=== PATIENT | female | born 1955 | race Caucasian/White ===

== ENCOUNTER 2023-03-02 13:05 | Outpatient (REF) | payer OTHER, SELFPAY ==
--- NOTE | ~2023-03-02 | MM_ITS ---
EXAMINATION: MM SCREENING DIGITAL BREAST TOMOSYNTHESIS, BILATERAL CLINICAL INFORMATION: Screening. Asymptomatic. Patient has a history of prior treated right breast cancer. COMPARISON: Mammography: This study is compared with prior exams dating back to 2019. TECHNIQUE: Digital breast tomosynthesis is performed in both the craniocaudal and mediolateral oblique views along with computer-aided detection (CAD). Synthesized 2D images are generated from the tomosynthesis. FINDINGS: The breasts are heterogeneously dense, which may obscure small masses (ACR BI-RADS breast composition Category c). There are no significant masses, abnormal calcifications, or other abnormalities. There are postsurgical changes in the right axilla and dystrophic calcification in the surgical bed of the central portion of the right breast. MM/MM tomosynthesis screening BI IMPRESSION: No mammographic evidence of malignancy. ASSESSMENT: BI-RADS BI-RADS 2 - Benign Findings RECOMMENDATION: Routine annual mammography screening. 1 year F/U This examination should not preclude the clinical evaluation of a suspicious palpable abnormality. This patient's information was entered into a reminder system with a target due date for their next mammogram.
== END 2023-03-02 13:06 | disposition home or self-care (01) ==
LOC: HO.MAMMO 13:05
PROVIDERS: PCP Specialist; Visit Provider Internal Medicine
DX: Z12.31 Encounter for screening mammogram for malignant neoplasm of breast (principal)
CPT/HCPCS: 77063; 77067

== ENCOUNTER → 2023-03-02 13:15 | Outpatient (BNV) | payer OTHER, SELFPAY | PROVIDERS: PCP Specialist; Visit Provider Radiology Diagnostic Radiology | DX: Z12.31 Encounter for screening mammogram for malignant neoplasm of breast (principal) | CPT/HCPCS: 77063; 77067 ==

== ENCOUNTER 2024-11-20 09:57 | Outpatient (AMB) | payer OTHER, SELFPAY ==
--- OUTSIDE RECORDS SUMMARY | 2024-11-20 10:50 | XMS_ITS | Clinical Summary ---
Author Organization [facility] Address [address] [place] [address] Care Team Providers Care Mortgage Advisor Name Role Phone Jac Rojas MD Primary Care Provider [phone] Allergies Active Allergy Reactions Criticality Noted Date Comments Meperidine 05/03/2018 Medications Medication Sig Dispensed Refills Start Date End Date Status montelukast (SINGULAIR) 10 MG tablet Take 1 tablet (10 mg total) by mouth every night at bedtime. 0 Active escitalopram (LEXAPRO) 20 MG tablet Take 1 tablet (20 mg total) by mouth daily. 0 Active Mometasone Furoate (NASONEX NA) spray or apply inside Nose. 0 Active Cholecalciferol (VITAMIN D) 2000 units tablet Take 2,000 Units by mouth daily. 0 Active Multiple Vitamins-Minerals (MULTIVITAMIN PO) Take by mouth daily. 0 Active Estradiol [address] vaginally. 0 Active rosuvastatin (CRESTOR) tablet 5 mg Take 1 tablet (5 mg total) by mouth daily. 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, estrogen receptor positive 05/03/2018 Immunizations Name Administration Dates Next Due Covid-19 (Moderna 12+) 100mcg/0.5mL dosage 02/03,07/03/2020,06/05/2020 Social History Tobacco Use Types Packs/Day Years Used Date Smoking Tobacco: Never Smokeless Tobacco: Never Sex and Gender Information Value Date Recorded Sex Assigned at Not on file Gender Identity Not on file Sexual Orientation Not on file Job Start Date Occupation Industry Not on file Not on file Not on file Last Filed Vital Signs Vital Sign Reading Time Taken Comments Blood Pressure 106/68 08/06/2023 1:58 PM EDT Pulse 69 08/06/2023 1:58 PM EDT Temperature 37.2 C (99 F) 08/06/2023 1:58 PM EDT Respiratory Rate - - Oxygen Saturation 97% 08/06/2023 1:58 PM EDT Inhaled Oxygen Concentration - - Weight 53 kg (116 lb 12.8 oz) 08/06/2023 1:58 PM EDT Height 154.9 cm (5' 1 ) 08/06/2023 1:58 PM EDT Body Mass Index 22.07 08/06/2023 1:58 PM EDT Plan of Treatment Health Maintenance Due Date Last Done Comments Hepatitis C Screening 1955 Pneumococcal Vaccine (1 of 2 - PCV) 1959 Depression Screening 1965 Preventative Health Evaluation 1971 DTap / Tdap / Td (1 - Tdap) 1972 Shingrix-Zoster Vaccine (1 o f 2) 1972 Colon Cancer Screening (Colonoscopy) 1998 Breast Cancer Screening (Mammogram) 2003 Fall Risk Assessment 2018 Osteoporosis Screening (DEXA Scan) 2018 COVID-19 Vaccine (4 - 2023-2 5 season) 2023 02/03/2021, 07/03/2020, 06/05/2020 Influenza Vaccine (#1) 2024 RSV Adult > 60+ Yrs or (1 - 1-dose 75+ series) 2028 Hepatitis B Vaccines Aged Out No long er eligible based on patient's age to complete this topic RSV Ped < 20 months Aged Out No longe r eligible based on patient's age to complete this topic Care Teams Mortgage Advisor Relationship Specialty Start Date End Date Jac Rojas MD [address] [place] [id number] PCP - General Internal Medicine 05/03/18
--- OUTSIDE RECORDS SUMMARY | 2024-11-20 10:50 | XMS_ITS | Encounter Summary ---
Author Organization [facility] Address [address] [place] [address] Care Team Providers Care Junior Administrative Assistant Name Role Phone Jac Rojas MD Primary Care Provider [phone] Encounter Details Date Type Department Care Team (Latest Contact Info) Description 05/24/2024 Lab Requisition [facility] - Main Lab [address] [facility] [place] [phone] Warren Isidro MD 299 [facility] [address] [place] [phone] Encounter for gynecological examination (general) (routine) without abnormal findings Social History Tobacco Use Types Packs/Day Years Used Date Smoking Tobacco: Never Smokeless Tobacco: Never Comments No Sex and Gender Information Value Date Recorded Sex Assigned at Not on file Legal Sex Female 8:37 PM EST Gender Identity Not on file Sexual Orientation Not on file documented as of this encounter Plan of Treatment Upcoming Encounters Date Type Department Care Team (Late st Contact Info) Description 01/16/2025 8:00 AM EDT Appointment [facility] Endoscopy [address] [place] [phone] Hilario Anderson MD [address] [id number] 09/07/2025 2:30 PM EDT Office Visit [facility] Hematology Oncology [address] [place] [phone] Samm Robins MD [address] [place] [phone] documented as of this encounter Procedures Procedure Name Priority Date/Time Associated Diagnosis Comments PAP SMEAR Routine 05/24/2024 12:00 PM EST Encounter for gynecological examination (general) (routine) without abnormal findings documented in this encounter Results * Pap smear (05/24/2024 12:00 PM EST) Interpretation Negative for intraepithelial lesion or malignancy 05/25/2024 3:35 PM EST [facility] General Categorization Negative 05/25/2024 3:35 PM [facility] Specimen Adequacy Satisfactory for evaluation, endocervical/lucas sformation zone component present 05/25/2024 3:35 PM [facility] Pap Methodology Liquid Based Pap Test 05/25/2024 3:35 PM [facility] Disclaimer The Pap test is a screening test which carries an inherent false negative rate. These test results should be correlated with the patient's clinical findings and history. This Pap test was processed using an automated screening system. Technical cytopathology services provided by [facility], at [address] [place] [address] (CLIA # [id number]/Jose Hernandez MD, Dental Practitioner.) 05/25/2024 3:35 PM [facility] Console Pap Interpretation Reported 05/25/2024 3:35 PM [facility] Brushing/Spatula Cervix uteri structure / Unknown 05/24/2024 12:00 PM EST 05/24/2024 3:15 PM EST us Warren Isidro MD LAB CYTOLOGY ORDERABLES Final Result [facility] [address] [place] [address], documented in this encounter Visit Diagnoses Diagnosis Encounter for gynecological examination (general) (routine) without abnormal findings documented in this encounter Care Teams Junior Administrative Assistant Relationship Specialty Start Date End Date Jac Rojas MD [address] [place] [address] PCP - General Internal Medicine 05/03/18 documented as of this encounter
== END 2024-11-20 10:16 | disposition home or self-care (01) ==
LOC: HO.HMGAL 09:57
PROVIDERS: PCP Specialist; Visit Provider Registered Nurse Emergency
DX: J30.89 Other allergic rhinitis (principal)
CPT/HCPCS: 95117; 95165

== ENCOUNTER 2024-12-11 10:15 | Outpatient (AMB) | payer MEDICARE, SELFPAY ==
--- OUTSIDE RECORDS SUMMARY | 2024-12-11 12:10 | XMS_ITS | Clinical Summary ---
Author Organization [facility] Address [address] [place] [address] Phone Care Team Providers Care Field Service Tech Name Role Phone Jac Rojas MD Primary Care Provider [phone] Allergies Active Allergy Reactions Criticality Noted Date Comments Meperidine 05/03/2018 Medications cholecalciferol (VITAMIN D-3) 50 mcg (2,000 unit) tablet Take 1 tablet (2,000 Units total) by mouth 1 (one) time each day. Active escitalopram (LEXAPRO) 20 mg tablet Take 0.5 tablets (10 mg total) by mouth 1 (one) time each day. Active estradioL (VAGIFEM) 10 mcg tablet vaginal tablet Insert 1 tablet (10 mcg total) into the vagina. Active montelukast (SINGULAIR) 10 mg tablet Take 1 tablet (10 mg total) by mouth at bedtime. Active mv-min/folic/vit K/lycop/coQ10 (DAILY MULTIVITAMIN ORAL) Take by mouth 1 (one) time each day. Active rosuvastatin (CRESTOR) 5 mg tablet Take 1 tablet (5 mg total) by mouth 1 (one) time each day. Active Active Problems Problem Noted Date Diagnosed Date Malignant neoplasm of overla pping sites of right breast in female, estrogen receptor positive (CMS/HCC V24, CMS/HCC V28) 12/24/2023 Encounters Date Type Department Care Team Description 10/19/2024 Telephone Gastroenterology - 299 [facility] 299 [facility] [address] [place] [address] Hilario Anderson MD from Last 3 Months Surgical History Surgery Date Site/Laterality Comments STEREOTACTIC CORE BIOPSY Right Medical History Medical History Date Comments Breast cancer (CMS/HCC V24, CMS/HCC V28) RIGHT Family History Medical History Relation Name Comments Breast cancer Father's Sister Breast cancer Mother's Sister Relation Name Status Comments Father's Sister Alive Mother's Sister Alive Social History Tobacco Use Types Packs/Day Years Used Date Smoking Tobacco: Never Smokeless Tobacco: Never Comments No Sex and Gender Information Value Date Recorded Sex Assigned at Not on file Legal Sex Female 8:37 PM EST Gender Identity Not on file Sexual Orientation Not on file Obstetrics History Para Term AB IAB SAB Ectopic Multiple Livin g Live Births 2 Last Filed Vital Signs Vital Sign Reading Time Taken Comments Blood Pressure 109/62 09/07/2024 2:28 PM EDT Pulse 73 09/07/2024 2:28 PM EDT Temperature 36.3 C (97.3 F) 09/07/2024 2:28 PM EDT Respiratory Rate - - Oxygen Saturation 98% 09/07/2024 2:28 PM EDT Inhaled Oxygen Concentration - - Weight 53.1 kg (117 lb) 03/03/2024 10:38 AM EST Height 154.9 cm (5' 1 ) 03/03/2024 10:38 AM EST Body Mass Index 22.11 03/03/2024 10:38 AM EST Plan of Treatment Upcoming Encounters Date Type Department Care Team (Late st Contact Info) Description 01/16/2025 8:00 AM EDT Appointment [facility] Endoscopy [address] [place] [address] Hilario Anderson MD [address] [place] [phone] 09/07/2025 2:30 PM EDT Office Visit [facility] Hematology Oncology [address] [place] [phone] Samm Ma MD [address] [place] [address] Health Maintenance Due Date Last Done Comments DTaP,Tdap,and Td Vaccines (1 - Tdap) 1972 Colorectal Cancer Screening: Colonoscopy 03/14/2022 Falls Risk Assessment 03/14/2022 Hepatitis C Screening 03/14/2022 Medicare Annual Wellness Visit 03/14/2022 Osteoporosis Screening (Bone Density Screening) 03/14/2022 Social Influencers of Health Screening 03/14/2022 Depression Screening 04/05/2024 COVID-19 Vaccine (8 - Moderna risk season) 2024 12/18/2023, 01/06/2023, 01/08/2022, Additional history exists Influenza Vaccine (#1) 2024 , 12/15/2022, 12/18/2021, Additional history exists Breast Cancer Screening 03/03/2026 03/03/20 24, 01/26/2022, 01/02/2021, Additional history exists Pneumococcal Vaccine: 50+ Years Completed 11/20/2018, 10/26/2018 Varicella Vaccines Aged Out 05/18/2019, 12/30/2018 No longer eligible based on patient's age to complete this topic Zoster Vaccines Completed 05/18/2019, 05/06, 12/30/2018, Additional history exists RSV Immunization Adult Patients Completed 05/03/2024 HIB Vaccines Aged Out No longer eligi ble based on patient's age to complete this topic HPV Vaccines Aged Out No longer eligi ble based on patient's age to complete this topic Hepatitis A Vaccines Aged Out No long er eligible based on patient's age to complete this topic Hepatitis B Vaccines Aged Out No long er eligible based on patient's age to complete this topic IPV Vaccines Aged Out No longer eligi ble based on patient's age to complete this topic MMR Vaccines Aged Out No longer eligi ble based on patient's age to complete this topic Meningococcal ACWY Vaccine Aged Out N o longer eligible based on patient's age to complete this topic Meningococcal B Vaccine Aged Out No l onger eligible based on patient's age to complete this topic RSV Immunization Patients Under 20 months Aged Out No longer eligible based on patient's age to complete this topic Procedures Procedure Name Priority Date/Time Associated Diagnosis Comments MG MAMMO DIGITAL SCREENING W DAMIEN BILAT Routine 03/03/2024 10:46 AM EST Encounter for screening mammogram for breast cancer from Last 3 Months or Most Recently Relevant to Health Maintenance Results * MG Mammo Digital Screening w Damien bilat (03/03/2024 10:46 AM EST) Anatomical Region Laterality Modality Breast Bilateral Mammography 03/08/2024 4:16 PM EST Impressions 03/08/2024 4:19 PM EST No evidence of breast malignancy. BI-RADS CATEGORY: 2 - BENIGN RECOMMENDATION: Screening bilateral mammogram is recommended in 1 year. Mammo Location: [facility], [address] [place] [address], [address], . -------- FINAL REPORT -------- Dictated By: Karen Ritchie Dictated Date: 03/08/2024 16:16 ET Assigned Physician: Karen Ritchie Reviewed and Electronically Signed By: Karen Ritchie Signed Date: 03/08/2024 16:19 ET Workstation ID: [id number] Transcribed By: Self Edit Transcribed Date: 03/08/2024 16:16 ET Narrative 03/08/2024 4:19 PM EST CLINICAL: 68 years old, Female, routine annual exam. History of right breast cancer. COMPARISON: 01/26/2022, 01/02/2021, 12/21/2019 and 12/06/2018 TECHNIQUE: Bilateral MLO and CC views were obtained digitally with 3-D mammogram (digital breast tomosynthesis). Computer-aided detection was utilized in evaluation of this exam (CAD). FINDINGS: There is no evidence of suspicious mass or architectural distortion. No worrisome calcifications are evident. There has been no significant change from prior exam(s). Stable right lumpectomy changes. Stable biopsy marker in the right breast. BREAST DENSITY: B - There are scattered areas of fibroglandular density. Procedure Note Karen Ritchie MD - 03/08/2024 CLINICAL: 68 years old, Female, routine annual exam. History of rightbreast cancer. COMPARISON: 01/26/2022, 01/02/2021, 12/21/2019 and 12/06/2018 TECHNIQUE: Bilateral MLO and CC views were obtained digitally with 3-Dmammogram (digital breast tomosynthesis). Computer-aided detection wasutilized in evaluation of this exam (CAD). FINDINGS: There is no evidence of suspicious mass or architectural distortion. Noworrisome calcifications are evident. There has been no significantchange from prior exam(s). Stable right lumpectomy changes. Stablebiopsy marker in the right breast. BREAST DENSITY: B - There are scattered areas of fibroglandular density. IMPRESSION: No evidence of breast malignancy. BI-RADS CATEGORY: 2 - BENIGN RECOMMENDATION: Screening bilateral mammogram is recommended in 1 year. Mammo Location: [facility], [address] [place] [address], [id number], . -------- FINAL REPORT -------- Dictated By: Karen Ritchie Dictated Date: 03/08/2024 16:16 ET Assigned Physician: Karen Ritchie Reviewed and Electronically Signed By: Karen Ritchie Signed Date: 03/08/2024 16:19 ET Workstation ID: [id number] Transcribed By: Self Edit Transcribed Date: 03/08/2024 16:16 ET us Self Referral Sppl IMG BI PROCEDURES Final Resul t from Last 3 Months or Most Recently Relevant to Health Maintenance Insurance [employer] - [place] MEDICARE ADVANTAGE Care Teams Field Service Tech Relationship Specialty Start Date End Date Jac Rojas MD [address] [place] [phone] PCP - General Internal Medicine 05/03/18
--- OUTSIDE RECORDS SUMMARY | 2024-12-11 12:10 | XMS_ITS | Clinical Summary ---
Author Organization [facility] Address [address] [place] [address] Care Team Providers Care Parts Specialist Name Role Phone Jac Rojas MD Primary Care Provider [phone] Allergies Active Allergy Reactions Criticality Noted Date [...] (DEXA Scan) 2018 COVID-19 Vaccine (4 - 2024-2 6 season) 2024 02/03/2021, 07/03/2020, 06/05/2020 Influenza Vaccine (#1) 2024 RSV Adult > 60+ Yrs or (1 - 1-dose 75+ series) 2028 Hepatitis B Vaccines Aged Out No long er eligible based on patient's age to complete this topic RSV Ped < 20 months Aged Out No longe r eligible based on patient's age to complete this topic Care Teams Parts Specialist Relationship Specialty Start Date End Date Jac Rojas MD [address] [place] [address] PCP - General Internal Medicine 05/03/18
--- OUTSIDE RECORDS SUMMARY | 2024-12-11 12:10 | XMS_ITS | Encounter Summary ---
Author Organization [facility] Address [address] [place] [address] Care Team Providers Care Hull And Deck Remover Name Role Phone Jac Rojas MD Primary Care Provider [phone] Encounter Details Date Type Department Care Team (Latest Contact Info) Description 05/24/2024 Lab Requisition [facility] Lab 299 [facility] [place] [phone] Warren Isidro MD [address] [phone] Encounter for gynecological examination (general) (routine) without [...] Info) Description 01/16/2025 8:00 AM EDT Appointment [facility] Endoscopy [address] [place] [address] Hilario Anderson MD [address] [place] [phone] 09/07/2025 2:30 PM EDT Office Visit [facility] Hematology Oncology [address] [place] [address] Samm Robins MD [address] [place] [phone] documented as of this encounter Procedures Procedure Name Priority Date/Time Associated Diagnosis Comments PAP SMEAR Routine 05/24/2024 12:00 PM EST Encounter for gynecological examination (general) (routine) without abnormal findings documented in this encounter Results * Pap smear (05/24/2024 12:00 PM EST) Interpretation Negative for intraepithelial lesion or malignancy 05/25/2024 3:35 PM [facility] General Categorization Negative 05/25/2024 3:35 PM [facility] Specimen Adequacy Satisfactory for evaluation, endocervical/lucas sformation zone component present 05/25/2024 3:35 PM [facility] Pap Methodology Liquid Based Pap Test 05/25/2024 3:35 PM [facility] Disclaimer The Pap test is a screening test which carries an inherent false negative rate. These test results should be correlated with the patient's clinical findings and history. This Pap test was processed using an automated screening system. Technical cytopathology services provided by [facility], at [address] [place] [address] (CLIA # [id number]/Jose Hernandez MD, Well Control Instructor.) 05/25/2024 3:35 PM [facility] Console Pap Interpretation Reported 05/25/2024 3:35 PM [facility] Brushing/Spatula Cervix uteri structure / Unknown 05/24/2024 12:00 PM EST 05/24/2024 3:15 PM EST us Warren Isidro MD LAB CYTOLOGY ORDERABLES Final Result [facility] [address] [place] [address], documented in this encounter Visit Diagnoses Diagnosis Encounter for gynecological examination (general) (routine) without abnormal findings documented in this encounter Care Teams Hull And Deck Remover Relationship Specialty Start Date End Date Jac Rojas MD [address] [place] [address] PCP - General Internal Medicine 05/03/18 documented as of this encounter
== END 2024-12-11 10:48 | disposition home or self-care (01) ==
LOC: HO.HMGAL 10:15
PROVIDERS: PCP Specialist; Visit Provider Registered Nurse Emergency
DX: J30.89 Other allergic rhinitis (principal)
CPT/HCPCS: 95117; 95165

== ENCOUNTER 2025-01-08 10:18 | Outpatient (AMB) | payer MEDICARE, SELFPAY ==
--- OUTSIDE RECORDS SUMMARY | 2010-08-20 04:20 | XMS_ITS | Continuity of Care Document ---
Author Organization [facility] Address [address] [place] [address] Phone Care Team Providers Care Recycle Worker Name Role Phone Leonora Omer MD Unavailable Unavailable Procedures Procedure Date OFFICE/OUTPATIENT VISIT, [facility] Advance Directives Directive Yes / No Effective Date File Name No Information Encounters Encounter Description Practice Location Reason(s) For Visit Diagnoses Date Provider Providers Copied on Encounter OFFICE/OUTPATI ENT VISIT, [facility], [address] [place] [address], [id number], tel:[phone] Medical No Information Negra Lea. [address] [place] [address], [id number]. tel:[phone] Family History Family Member Type Diagnosis Age At Onset No Information Payers Payer name Insurance type Covered green party ID Authoriza tion(s) [facility] [employer] Employees BL [id number] Social History Type Description Quantity Date Captured [...]
--- OUTSIDE RECORDS SUMMARY | 2025-01-08 12:00 | XMS_ITS | Encounter Summary ---
Author Organization [facility] Address [address] [place] [address] Care Team Providers Care Physical Metallurgist Name Role Phone Jac Rojas MD Primary Care Provider [phone] Encounter Details Date Type Department Care Team (Latest Contact Info) Description 05/24/2024 Lab Requisition [facility] - Main Lab [address] [facility] [place] [phone] Warren Isidro MD 299 [facility] [address] [place] [phone] Encounter for gynecological examination (general) (routine) without [...] Info) Description 01/16/2025 8:00 AM EDT Appointment [facility] Endoscopy [address] [place] [phone] Hilario Anderson MD [address] [phone] 09/07/2025 2:30 PM EDT Office Visit [facility] Hematology Oncology [address] [place] [phone] Samm Robins MD [address] [place] [phone] documented as of this encounter Procedures Procedure Name Priority Date/Time Associated Diagnosis Comments PAP SMEAR Routine 05/24/2024 12:00 PM EST Encounter for gynecological examination (general) (routine) without abnormal findings documented in this encounter Results * Pap smear (05/24/2024 12:00 PM EST) Interpretation Negative for intraepithelial lesion or malignancy 05/25/2024 3:35 PM EST [facility] General Categorization Negative 05/25/2024 3:35 PM [facility] Specimen Adequacy Satisfactory for evaluation, endocervical/lucas sformation zone component present 05/25/2024 3:35 PM [facility] Pap Methodology Liquid Based Pap Test 05/25/2024 3:35 PM [facility] Disclaimer The Pap test is a screening test which carries an inherent false negative rate. These test results should be correlated with the patient's clinical findings and history. This Pap test was processed using an automated screening system. Technical cytopathology services provided by [facility], at [address] [place] [address] (CLIA # [id number]/Jose Hernandez MD, Aviation Technician.) 05/25/2024 3:35 PM [facility] Console Pap Interpretation Reported 05/25/2024 3:35 PM [facility] Brushing/Spatula Cervix uteri structure / Unknown 05/24/2024 12:00 PM EST 05/24/2024 3:15 PM EST us Warren Isidro MD LAB CYTOLOGY ORDERABLES Final Result [facility] [address] [place] [address], documented in this encounter Visit Diagnoses Diagnosis Encounter for gynecological examination (general) (routine) without abnormal findings documented in this encounter Care Teams Physical Metallurgist Relationship Specialty Start Date End Date Jac Rojas MD [address] [place] [address] PCP - General Internal Medicine 05/03/18 documented as of this encounter
--- OUTSIDE RECORDS SUMMARY | 2025-01-08 12:00 | XMS_ITS | Clinical Summary ---
Author Organization [facility] Address [address] [place] [address] Care Team Providers Care Industrial Diamond Polisher Name Role Phone Jac Rojas MD Primary Care Provider [phone] Allergies Active Allergy Reactions Criticality Noted Date [...] age to complete this topic Care Teams Industrial Diamond Polisher Relationship Specialty Start Date End Date Jac Rojas MD [address] [place] [address] PCP - General Internal Medicine 05/03/18
--- OUTSIDE RECORDS SUMMARY | 2025-01-08 12:00 | XMS_ITS | Clinical Summary ---
Author Organization [facility] Address [address] [place] [address] Phone Care Team Providers Care Brokerage Clerk Name Role Phone Jac Rojas MD Primary Care Provider [phone] Allergies Active Allergy Reactions Criticality Noted Date [...] mouth 1 (one) time each day. Active polyethylene glycol (Golytely) 236-22.74-6.74 -5.86 gram solution Take 4L by mouth once for one dose. May substitue any PEG. Starting at 2PM the day before your procedure drink 1 8oz glasses at your own pace until you complete half of the gallon. Finish 2nd half of the gallon at 8PM. 4000 mL 01/03/20 25 Active bisacodyL (DULCOLAX) 5 mg EC tablet Take 2 tablets by mouth right before beginning bowel prep. See instructions provided by the office 2 tablet 01/03/20 25 Active [id number] ilr-XsBz-JDh-asb -C 140-9-5.2 gram powder in packet, sequential Take 1 each by mouth See administration instructions. 3 packet 01/03/20 25 Active Active Problems Problem Noted Date Diagnosed Date Malignant neoplasm of overla pping sites of right breast in female, estrogen receptor positive ([facility] V24, [facility] V28) 12/24/2023 Encounters Date Type Department Care Team Description 10/19/2024 Telephone Gastroenterology - [address] [place] [address] Hilario Anderson MD from Last 3 Months Surgical History Surgery Date Site/Laterality Comments STEREOTACTIC CORE BIOPSY Right Medical History Medical History Date Comments Breast cancer ([facility] V24, [facility] V28) RIGHT Family History Medical History Relation [...] Info) Description 01/16/2025 8:00 AM EDT Appointment [facility] Endoscopy [address] [place] [address] Hilario Anderson MD [address] [address] 09/07/2025 2:30 PM EDT Office Visit [facility] Hematology Oncology [address] [place] [address] Samm Ma MD [address] [place] [address] Health Maintenance Due Date Last Done Comments Colorectal Cancer Screening: Colonoscopy 1953 DTaP,Tdap,and Td Vaccines (1 - Tdap) 1972 Falls Risk Assessment 03/14/2022 Hepatitis C Screening 03/14/2022 Medicare Annual Wellness Visit 03/14/2022 Osteoporosis Screening (Bone Density Screening) 03/14/2022 Social Influencers of Health Screening 03/14/2022 Depression Screening 04/05/2024 COVID-19 Vaccine (8 - Moderna risk 2023- season) 2024 12/18/2023, 01/06/2023, 01/08/2022, Additional history [...] on patient's age to complete this topic Goals Goal Patient Goal Type Associated Problems Recent Progress Patient-Stated? Author Autogenerat ed Goal Care Plan Autogenerated Problem No Claus Craig Procedures Procedure Name Priority Date/Time Associated Diagnosis [...] year. Mammo Location: [facility], [address] [place] [address], [address], . -------- FINAL REPORT -------- Dictated By: Karen Ritchie Dictated Date: 03/08/2024 16:16 ET Assigned Physician: Karen Ritchie Reviewed and Electronically Signed By: Karen Ritchie Signed Date: 03/08/2024 16:19 ET Workstation ID: [id number] Transcribed By: Self Edit Transcribed Date: 03/08/2024 [...] year. Mammo Location: [facility], [address] [place] [address], [address], . -------- FINAL REPORT -------- Dictated By: Karen Ritchie Dictated Date: 03/08/2024 16:16 ET Assigned Physician: Karen Ritchie Reviewed and Electronically Signed By: Karen Ritchie Signed Date: 03/08/2024 16:19 ET Workstation ID: [id number] Transcribed By: Self Edit Transcribed Date: 03/08/2024 16:16 ET us Self Referral Sppl IMG BI PROCEDURES Final Resul t from Last 3 Months or Most Recently Relevant to Health Maintenance Additional Health Concerns Active Problems Noted Date Diagnosed Date Autogenerated Problem 01/01/2025 Insurance [employer] - [place]ICARE ADVANT[place] Care Teams Brokerage Clerk Relationship Specialty Start Date End Date Jac Rojas MD [address] [place] [phone] PCP - General Internal Medicine 05/03/18
== END 2025-01-08 10:53 | disposition home or self-care (01) ==
LOC: HO.HMGAL 10:18
PROVIDERS: PCP Specialist; Visit Provider Registered Nurse Emergency
DX: J30.89 Other allergic rhinitis (principal)
CPT/HCPCS: 95117; 95165

== ENCOUNTER 2025-01-31 10:24 | Outpatient (AMB) | payer MEDICARE, SELFPAY ==
--- OUTSIDE RECORDS SUMMARY | 2010-08-20 04:20 | XMS_ITS | Continuity of Care Document ---
Author Organization [facility] Address [address] [place] [address] Phone Care Team Providers Care Apprentice Technician Name Role Phone Leonora Omer MD Unavailable Unavailable Procedures Procedure Date OFFICE/OUTPATIENT VISIT, [facility] Advance Directives Directive Yes / No Effective Date File Name No Information Encounters Encounter Description Practice Location Reason(s) For Visit Diagnoses Date Provider Providers Copied on Encounter OFFICE/OUTPATI ENT VISIT, [facility], [address] [place] [address], [id number], tel:[phone] Medical No Information Negra Lea. [address] [place] [address], [id number]. tel:[phone] Family History Family Member Type Diagnosis Age At Onset No Information Payers Payer name Insurance type Covered alliance party ID Authoriza tion(s) [facility] Federal Employees BL [id number] Social History Type Description Quantity Date Captured [...]
--- OUTSIDE RECORDS SUMMARY | 2025-01-31 12:56 | XMS_ITS | Clinical Summary ---
Author Organization [facility] Address [address] [place] [address] Phone Care Team Providers Care Chief Underwriter Name Role Phone Jac Rojas MD Primary Care Provider [phone] Allergies Active Allergy Reactions Criticality Noted Date [...] the office 2 tablet 01/03/20 25 Active [id number] ogz-FqRu-KGp-asb -C 140-9-5.2 gram powder in packet, sequential Take 1 each by mouth See administration instructions. 3 packet 01/03/20 25 Active Active Problems Problem Noted Date Diagnosed Date Malignant neoplasm of overla pping sites of right breast in female, estrogen receptor positive ([facility] V24, [facility] V28) 12/24/2023 Encounters Date Type Department Care Team Description 01/15/2025 11:59 PM EDT Anesthesia Event [facility] Endoscopy [address] [place] [address] Celestino Mccormack CRNA from Last 3 Months Surgical History Surgery Date Site/Laterality Comments STEREOTACTIC CORE BIOPSY Right Medical History Medical History Date Comments Breast cancer ([facility] V24, [facility] V28) RIGHT Family History Medical History Relation [...] Care Team (Late st Contact Info) Description 03/21/2025 8:00 AM EST Appointment [facility] Endoscopy [address] [place] [address] Hilario Anderson MD [address] [place] [phone] 09/07/2025 2:30 PM EDT Office Visit [facility] Hematology Oncology [address] [place] [address] Samm Robins MD [address] [place] [address] Health Maintenance Due Date Last [...] year. Mammo Location: [facility], [address] [place] [address], [address], . -------- FINAL REPORT -------- Dictated By: Karen Ritchie Dictated Date: 03/08/2024 16:16 ET Assigned Physician: Karen Ritchie Reviewed and Electronically Signed By: Karen Ritchie Signed Date: 03/08/2024 16:19 ET Workstation ID: [id number] Transcribed By: Self Edit Transcribed Date: 03/08/2024 [...] year. Mammo Location: [facility], [address] [place] [address], [address], . -------- FINAL REPORT -------- Dictated By: Karen Ritchie Dictated Date: 03/08/2024 16:16 ET Assigned Physician: Karen Ritchie Reviewed and Electronically Signed By: Karen Ritchie Signed Date: 03/08/2024 16:19 ET Workstation ID: [id number] Transcribed By: Self Edit Transcribed Date: 03/08/2024 16:16 ET us Self Referral Sppl IMG BI PROCEDURES Final Resul t from Last 3 Months or Most Recently Relevant to Health Maintenance Additional Health Concerns Active Problems Noted Date Diagnosed Date Autogenerated Problem 01/30/2025 Insurance [place] Care Teams Chief Underwriter Relationship Specialty Start Date End Date Jac Rojas MD [address] [place] [phone] PCP - General Internal Medicine 05/03/18
--- OUTSIDE RECORDS SUMMARY | 2025-01-31 12:56 | XMS_ITS | Clinical Summary ---
Author Organization [facility] Address [address] [place] [address] Care Team Providers Care Loan Teller Name Role Phone Jac Rojas MD Primary Care Provider Allergies Active Allergy Reactions Criticality Noted Date [...] age to complete this topic Care Teams Loan Teller Relationship Specialty Start Date End Date Jac Rojas MD [address] [place] [address] PCP - General Internal Medicine 05/03/18
--- OUTSIDE RECORDS SUMMARY | 2025-01-31 12:56 | XMS_ITS | Encounter Summary ---
Author Organization [facility] Address [address] [place] [address] Care Team Providers Care Beach Attendant Name Role Phone Jac Rojas MD Primary Care Provider [phone] Encounter Details Date Type Department Care Team (Latest Contact Info) Description 05/24/2024 Lab Requisition [facility] - Main Lab 299 [facility] [place] [phone] Warren Isidro MD [address] [phone] Encounter for gynecological examination (general) (routine) without [...] Info) Description 03/21/2025 8:[address] [facility] Endoscopy [address] [place] [phone] Hilario Anderson MD [address] [place] [phone] 09/07/2025 2:30 PM EDT Office Visit [facility] Hematology Oncology [address] [place] [address] Samm Robins MD [address] [place] [phone] documented as of this encounter Procedures Procedure Name Priority Date/Time Associated Diagnosis Comments PAP SMEAR Routine 05/24/2024 12:00 PM EST Encounter for gynecological examination (general) (routine) without abnormal findings documented in this encounter Results * Pap smear (05/24/2024 12:00 PM EST) Interpretation Negative for intraepithelial lesion or malignancy 05/25/2024 3:35 PM EST [facility] General Categorization Negative 05/25/2024 3:35 PM [facility] Specimen Adequacy Satisfactory for evaluation, endocervical/lucas sformation zone component present 05/25/2024 3:35 PM [facility] Pap Methodology Liquid Based Pap Test 05/25/2024 3:35 PM [facility] Disclaimer The Pap test is a screening test which carries an inherent false negative rate. These test results should be correlated with the patient's clinical findings and history. This Pap test was processed using an automated screening system. Technical cytopathology services provided by [facility], at [address] [place] [address] (CLIA # [id number]/Jose Hernandez MD, Formstone Fitter.) 05/25/2024 3:35 PM [facility] Console Pap Interpretation Reported 05/25/2024 3:35 PM [facility] Brushing/Spatula Cervix uteri structure / Unknown 05/24/2024 12:00 PM EST 05/24/2024 3:15 PM EST us Warren Isidro MD LAB CYTOLOGY ORDERABLES Final Result [facility] [address] [place] [address], documented in this encounter Visit Diagnoses Diagnosis Encounter for gynecological examination (general) (routine) without abnormal findings documented in this encounter Care Teams Beach Attendant Relationship Specialty Start Date End Date Jac Rojas MD [address] [place] [phone] PCP - General Internal Medicine 05/03/18 documented as of this encounter
== END 2025-01-31 10:25 | disposition home or self-care (01) ==
LOC: HO.HMGAL 10:24
PROVIDERS: PCP Specialist; Visit Provider Registered Nurse Emergency
DX: J30.89 Other allergic rhinitis (principal)
CPT/HCPCS: 95117; 95165

== ENCOUNTER 2025-02-21 15:48 | Outpatient (AMB) | payer MEDICARE, SELFPAY ==
--- OUTSIDE RECORDS SUMMARY | 2010-08-20 03:20 | XMS_ITS | Continuity of Care Document ---
Author Organization [facility] Address [address] [place] [address] Phone Care Team Providers Care [employer] Physical Education Teacher Name Role Phone Leonora Omer MD Unavailable Unavailable Procedures Procedure Date OFFICE/OUTPATIENT VISIT, [facility] Advance Directives Directive Yes / No Effective Date File Name No Information Encounters Encounter Description Practice Location Reason(s) For Visit Diagnoses Date Provider Providers Copied on Encounter OFFICE/OUTPATI ENT VISIT, [facility], [address] [place] [address], [id number], tel:[phone] Medical No Information Negra Lea. [address] [place] [address], [id number]. tel:[phone] Family History Family Member Type Diagnosis Age At Onset No Information Payers Payer name Insurance type Covered constitution party ID Authoriza tion(s) [facility] [employer] Employees BL [id number] Social History Type Description Quantity Date Captured Comments Sex Female Smoking Status No Information Chief Complaint And Reason For Visit No Information Reason For Referral Reason For Referral No Information History Of Present Illness Encounter Date Complaint History Of Prese nt Illness No Information Functional Status Date Functional Assessmen t No Information Instructions Date Instruction Additional Infor mation No Information Assessments Type Assessment Date No Information Patient Care Teams Name Effective Dates (start - stop) Status Members No Information
--- OUTSIDE RECORDS SUMMARY | 2010-08-20 03:20 | XMS_ITS | Continuity of Care Document ---
Author Organization [facility] Address [address] [place] [address] Phone Care Team Providers Care Mailroom Manager Name Role Phone Leonora Omer MD Unavailable Unavailable Procedures Procedure Date OFFICE/OUTPATIENT VISIT, [facility] Advance Directives Directive Yes / No Effective Date File Name No Information Encounters Encounter Description Practice Location Reason(s) For Visit Diagnoses Date Provider Providers Copied on Encounter OFFICE/OUTPATI ENT VISIT, [facility], [address] [place] [address], [id number], tel:[phone] Medical No Information Negra Lea. [address] [place] [address], [id number]. tel:[phone] Family History Family Member Type Diagnosis Age At Onset No Information Payers Payer name Insurance type Covered constitution party ID Authoriza tion(s) [facility] Federal Employees BL [id number] Social History Type Description Quantity Date Captured [...]
--- OUTSIDE RECORDS SUMMARY | 2010-08-20 03:20 | XMS_ITS | Continuity of Care Document ---
Author Organization [facility] Address [address] [place] [address] Phone Care Team Providers Care Industrial Commercial Groundskeeper Name Role Phone Leonora Omer MD Unavailable Unavailable Procedures Procedure Date OFFICE/OUTPATIENT VISIT, [facility] Advance Directives Directive Yes / No Effective Date File Name No Information Encounters Encounter Description Practice Location Reason(s) For Visit Diagnoses Date Provider Providers Copied on Encounter OFFICE/OUTPATI ENT VISIT, [facility], [address] [place] [address], [id number], tel:[phone] Medical No Information Negra Lea. [address] [place] [address], [id number]. tel:[phone] Family History Family Member Type Diagnosis Age At Onset No Information Payers Payer name Insurance type Covered democrat ID Authoriza tion(s) [facility] [employer] Employees BL [id number] Social History Type Description Quantity Date Captured [...]
--- OUTSIDE RECORDS SUMMARY | 2010-08-20 03:20 | XMS_ITS | Continuity of Care Document ---
Author Organization [facility] Address [address] [place] [address] Phone Care Team Providers Care Line Service Technician Name Role Phone Leonora Omer MD Unavailable Unavailable Procedures Procedure Date OFFICE/OUTPATIENT VISIT, [facility] Advance Directives Directive Yes / No Effective Date File Name No Information Encounters Encounter Description Practice Location Reason(s) For Visit Diagnoses Date Provider Providers Copied on Encounter OFFICE/OUTPATI ENT VISIT, [facility], [address] [place] [address], [id number], tel:[phone] Medical No Information Negra Lea. [address] [place] [address], [id number]. tel:[phone] Family History Family Member Type Diagnosis Age At Onset No Information Payers Payer name Insurance type Covered libertarian ID Authoriza tion(s) [facility] Federal Employees BL [id number] Social History Type Description Quantity Date Captured [...]
--- OUTSIDE RECORDS SUMMARY | 2010-08-20 03:20 | XMS_ITS | Continuity of Care Document ---
Author Organization [facility] Address [address] [place] [address] Phone Care Team Providers Care Regional Economist Name Role Phone Leonora Omer MD Unavailable Unavailable Procedures Procedure Date OFFICE/OUTPATIENT VISIT, [facility] Advance Directives Directive Yes / No Effective Date File Name No Information Encounters Encounter Description Practice Location Reason(s) For Visit Diagnoses Date Provider Providers Copied on Encounter OFFICE/OUTPATI ENT VISIT, [facility], [address] [place] [address], [id number], tel:[phone] Medical No Information Negra Lea. [address] [place] [address], [id number]. tel:[phone] Family History Family Member Type Diagnosis Age At Onset No Information Payers Payer name Insurance type Covered democrat ID Authoriza tion(s) [facility] [employer] Employees BL [id number] Social History Type Description Quantity Date Captured [...]
--- OUTSIDE RECORDS SUMMARY | 2025-02-22 04:25 | XMS_ITS | Clinical Summary ---
Author Organization [facility] Address [address] [place] [address] Care Team Providers Care Physician Relations Representative Name Role Phone Jac Rojas MD Primary Care Provider [phone] Allergies Active Allergy Reactions Criticality Noted Date [...] age to complete this topic Care Teams Physician Relations Representative Relationship Specialty Start Date End Date Jac Rojas MD [address] [place] [address] PCP - General Internal Medicine 05/03/18
== END 2025-02-21 15:48 | disposition home or self-care (01) ==
LOC: HO.HMGAL 15:48
PROVIDERS: PCP Specialist; Visit Provider Registered Nurse Emergency
DX: J30.89 Other allergic rhinitis (principal)
CPT/HCPCS: 95117; 95165

== ENCOUNTER 2025-03-07 11:01 | Outpatient (AMB) | payer MEDICARE, SELFPAY ==
--- OUTSIDE RECORDS SUMMARY | 2025-03-05 10:22 | XMS_ITS | Encounter Summary ---
Author Organization [facility] Address [address] [place] [address] Care Team Providers Care Coach Name Role Phone Jac Rojas MD Primary Care Provider [phone] Reason for Referral * Imaging (Routine) - Authorized Specialty Diagnoses / Procedures Referred By Contac t Referred To Contact Radiology Diagnoses Encounter for screening mammogram for breast cancer Procedures MG Mammo Digital Screening w Damien bilat Sppl, Self Referral [facility] Referral ID Status Reason Start Date Expiration Date V isits Requested Visits Authorized [id number] Authorized 02/06/2025 02/06/2026 1 1 * Imaging (Routine) - Authorized Specialty Diagnoses / Procedures Referred By Contac t Referred To Contact Radiology Diagnoses Encounter for screening mammogram for breast cancer Procedures MG Mammo Digital Screening w Damien bilat Sppl, Self Referral [facility] Referral ID Status Reason Start Date Expiration Date V isits Requested Visits Authorized [id number] Authorized 02/06/2025 02/06/2026 1 1 Reason for Visit * Imaging (Routine) - Authorized Specialty Diagnoses / Procedures Referred By Contac t Referred To Contact Radiology Diagnoses Encounter for screening mammogram for breast cancer Procedures MG Mammo Digital Screening w Damien bilat Sppl, Self Referral [facility] Referral ID Status Reason Start Date Expiration Date V isits Requested Visits Authorized [id number] Authorized 02/06/2025 02/06/2026 1 1 Encounter Details Date Type Department Care Team (Latest Contact Info) Description 03/05/2025 10:22 AM EST - 03/05/2025 11:59 PM EST Hospital [facility] [address] [address] Encounter for screening mammogram for breast cancer Discharge Disposition: Home or Self Care Social History Tobacco Use Types Packs/Day Years Used Date Smoking Tobacco: Never Smokeless Tobacco: Never Comments No Sex and Gender Information Value Date Recorded Sex Assigned at Not on file Legal Sex Female 8:37 PM EST Gender Identity Not on file Sexual Orientation Not on file documented as of this encounter Medications at Time of Discharge bisacodyL (DULCOLAX) 5 mg EC tablet Take 2 tablets by mouth right before beginning bowel prep. See instructions provided by the office 2 tablet 5 cholecalciferol (VITAMIN D-3) 50 mcg (2,000 unit) tablet Take 1 tablet (2,000 Units total) by mouth 1 (one) time each day. escitalopram (LEXAPRO) 20 mg tablet Take 0.5 tablets (10 mg total) by mouth 1 (one) time each day. estradioL (VAGIFEM) 10 mcg tablet vaginal tablet Insert 1 tablet (10 mcg total) into the vagina. montelukast (SINGULAIR) 10 mg tablet Take 1 tablet (10 mg total) by mouth at bedtime. mv-min/folic/vit K/lycop/coQ10 (DAILY MULTIVITAMIN ORAL) Take by mouth 1 (one) time each day. [id number] dbt-YwOv-BXp-asb- C 140-9-5.2 gram powder in packet, sequential Take 1 each by mouth See administration instructions. 3 packet 5 polyethylene glycol (Golytely) 236-22.74-6.74 -5.86 gram solution Take 4L by mouth once for one dose. May substitue any PEG. Starting at 2PM the day before your procedure drink 1 8oz glasses at your own pace until you complete half of the gallon. Finish 2nd half of the gallon at 8PM. 4000 mL 5 rosuvastatin (CRESTOR) 5 mg tablet Take 1 tablet (5 mg total) by mouth 1 (one) time each day. documented as of this encounter Discharge Disposition Disposition Code Departure Means Destination Home or Self Care documented in this encounter Plan of Treatment Upcoming Encounters Date Type Department Care Team (Late st Contact Info) Description 03/21/2025 8:00 AM EST Appointment [facility] Endoscopy [address] [place] [phone] Hilario [place] MD [address] [address] 09/07/2025 2:30 PM EDT Office Visit [facility] Hematology Oncology [address] [place] [phone] Samm Robins MD [address] [place] [address] documented as of this encounter Procedures Procedure Name Priority Date/Time Associated Diagnosis Comments MG MAMMO DIGITAL SCREENING W DAMIEN BILAT Routine 03/05/2025 11:06 AM EST Encounter for screening mammogram for breast cancer documented in this encounter Results * MG Mammo Digital Screening w Damien bilat (03/05/2025 11:06 AM EST) Anatomical Region Laterality Modality Breast Bilateral Mammography 03/05/2025 11:2 1 AM EST Impressions 03/05/2025 1:26 PM EST Benign. BI-RADS CATEGORY: 2 - BENIGN RECOMMENDATION: Screening bilateral mammogram is recommended in 1 year. Mammo Location: [facility], [address] [place] [address], [address], . -------- FINAL REPORT -------- Dictated By: Blane Spencer Dictated Date: 03/05/2025 11:21 ET Assigned Physician: Blane Spencer Reviewed and Electronically Signed By: Blane Spencer Signed Date: 03/05/2025 13:26 ET Workstation ID: [id number] Transcribed By: Self Edit Transcribed Date: 03/05/2025 11:29 ET Narrative 03/05/2025 1:26 PM EST CLINICAL: 69 years old, Female, routine annual exam. COMPARISON: 03/03/2024 and 01/26/2022. TECHNIQUE: Bilateral MLO and CC views were obtained digitally with 3-D mammogram (digital breast tomosynthesis). Computer-aided detection was utilized in evaluation of this exam (CAD). FINDINGS: Scattered benign calcifications. Stable postlumpectomy and axillary lymph node dissection changes on the right. No suspicious mass or architectural distortion. No suspicious calcification. There has been no significant change from prior exam(s). BREAST DENSITY: B - There are scattered areas of fibroglandular density. Procedure Note Blane Spencer MD - 03/05/2025 CLINICAL: 69 years old, Female, routine annual exam. COMPARISON: 03/03/2024 and 01/26/2022. TECHNIQUE: Bilateral MLO and CC views were obtained digitally with 3-Dmammogram (digital breast tomosynthesis). Computer-aided detection wasutilized in evaluation of this exam (CAD). FINDINGS: Scattered benign calcifications. Stable postlumpectomy andaxillary lymph node dissection changes on the right. No suspicious mass or architectural distortion. No suspiciouscalcification. There has been no significant change from prior exam(s). BREAST DENSITY: B - There are scattered areas of fibroglandular density. IMPRESSION: Benign. BI-RADS CATEGORY: 2 - BENIGN RECOMMENDATION: Screening bilateral mammogram is recommended in 1 year. Mammo Location: [facility], [address] [place] [address], [facility], . -------- FINAL REPORT -------- Dictated By: Blane Spencer Dictated Date: 03/05/2025 11:21 ET Assigned Physician: Blane Spencer Reviewed and Electronically Signed By: Blane Spencer Signed Date: 03/05/2025 13:26 ET Workstation ID: [id number] Transcribed By: Self Edit Transcribed Date: 03/05/2025 11:29 ET us Self Referral Sppl IMG BI PROCEDURES Final Resul t documented in this encounter Visit Diagnoses Diagnosis Encounter for screening mammogram for breast cancer documented in this encounter Care Teams Coach Relationship Specialty Start Date End Date Jac Rojas MD [address] [place] [address] PCP - General Internal Medicine 05/03/18 documented as of this encounter
--- OUTSIDE RECORDS SUMMARY | 2025-03-07 13:00 | XMS_ITS | Clinical Summary ---
Author Organization [facility] Prior to 09/02/24 Address [address] [place] [address] Care Team Providers Care Cloth Doubling Machine Operator Name Role Phone Jac Rojas MD Primary Care Provider [phone] Allergies Active Allergy Reactions Criticality Noted Date [...] Osteoporosis Screening (DEXA Scan) 2018 COVID-19 Vaccine (2024-2 6 season) 2024 02/03/2021, 07/03/2020, 06/05/2020 Influenza Vaccine (#1) 2024 RSV Adult > 60+ Yrs or (1 - 1-dose 75+ series) 2028 Hepatitis B Vaccines Aged Out No long er eligible based on patient's age to complete this topic RSV Ped < 20 months Aged Out No longe r eligible based on patient's age to complete this topic Care Teams Cloth Doubling Machine Operator Relationship Specialty Start Date End Date Jac Rojas MD [address] [place] [address] PCP - General Internal Medicine 05/03/18
--- OUTSIDE RECORDS SUMMARY | 2025-03-07 13:00 | XMS_ITS | Clinical Summary ---
Author Organization [facility] Address [address] [place] [address] Phone Care Team Providers Care Claim Representative Name Role Phone Jac Rojas MD Primary Care Provider [phone] Allergies Active Allergy Reactions Criticality Noted Date [...] the office 2 tablet 01/03/20 25 Active [id number] mrh-AaJf-YEa-asb -C 140-9-5.2 gram powder in packet, sequential Take 1 each by mouth See administration instructions. 3 packet 01/03/20 25 Active Active Problems Problem Noted Date Diagnosed Date Malignant neoplasm of overla pping sites of right breast in female, estrogen receptor positive ([facility] V24, [facility] V28) 12/24/2023 Encounters Date Type Department Care Team Description 03/05/2025 10:22 AM EST - 03/05/2025 11:59 PM EST Hospital [facility]counter [facility] at [address] [phone] Encounter for screening mammogram for breast cancer Discharge Disposition: Home or Self Care 01/15/2025 11:59 PM EDT Anesthesia Event [facility] Endoscopy [address] [place] [phone] Celestino Mccormack CRNA from Last 3 Months Surgical History Surgery Date Site/Laterality Comments STEREOTACTIC CORE BIOPSY Right Medical History Medical History Date Comments Breast cancer ([facility] [place], [facility] V28) RIGHT Family History Medical History Relation [...] Info) Description 03/21/2025 8:00 AM EST Appointment [facility] Endoscopy [address] [place] [address] Hilario [place] MD [address] [phone] 09/07/2025 2:30 PM EDT Office Visit [facility] Hematology Oncology [address] [place] [address] Samm Robins MD [address] [place] [address] Health Maintenance Due Date Last Done Comments Colorectal Cancer Screening: Colonoscopy 1955 [place] Risk Assessment 03/14/2022 Hepatitis C Screening 03/14/2022 Medicare Annual Wellness Visit 03/14/2022 Osteoporosis Screening (Bone Density Screening) 03/14/2022 Social Influencers of Health Screening 03/14/2022 Depression Screening 04/05/2024 COVID-19 Vaccine (9 - Moderna risk season) 2025 12/25/2024, 12/18/2023, 01/06/2023, Additional history exists Breast Cancer Screening 03/05/2027 03/05/20 25, 03/03/2024, 01/26/2022, Additional history exists DTaP,Tdap,and Td Vaccines (2 - Td or Tdap) 10/16/2034 10/16/2024 Pneumococcal Vaccine: 50+ Years Completed 11/20/2018, 10/26/2018 Varicella Vaccines Aged Out 05/18/2019, 12/30/2018 No longer eligible based on patient's age to complete this topic Zoster Vaccines Completed 05/18/2019, 05/06, 12/30/2018, Additional history exists RSV Immunization Adult Patients Completed 05/03/2024 Influenza Vaccine Completed 12/25/2024, , 12/15/2022, Additional history exists HIB Vaccines Aged Out No longer eligi [...] for breast cancer from Last 3 Months Results * MG Mammo Digital Screening w Damien bilat (03/05/2025 11:06 AM EST) Anatomical Region Laterality Modality Breast Bilateral Mammography 03/05/2025 11:2 1 AM EST Impressions 03/05/2025 1:26 PM EST Benign. BI-RADS CATEGORY: 2 - BENIGN RECOMMENDATION: Screening bilateral mammogram is recommended in 1 year. Mammo Location: [facility], [address] [place] [address], [address], . -------- FINAL REPORT -------- Dictated By: Blane Spencer Dictated Date: 03/05/2025 11:21 ET Assigned Physician: Blane Spencer Reviewed and Electronically Signed By: Blane Spencer Signed Date: 03/05/2025 13:26 ET Workstation ID: [id number] Transcribed By: Self Edit Transcribed Date: 03/05/2025 [...] year. Mammo Location: [facility], [address] [place] [address], [facility], . -------- FINAL REPORT -------- Dictated By: Blane Spencer Dictated Date: 03/05/2025 11:21 ET Assigned Physician: Blane Spencer Reviewed and Electronically Signed By: Blane Spencer Signed Date: 03/05/2025 13:26 ET Workstation ID: [id number] Transcribed By: Self Edit Transcribed Date: 03/05/2025 11:29 ET us Self Referral Sppl IMG BI PROCEDURES Final Resul t from Last 3 Months Insurance [employer] - [place] MEDICARE ADVANTAGE Care Teams Claim Representative Relationship Specialty Start Date End Date Jac Rojas MD [address] [place] [address] PCP - General Internal Medicine 05/03/18
--- OUTSIDE RECORDS SUMMARY | 2025-03-07 13:00 | XMS_ITS | Encounter Summary ---
Author Organization [facility] Address [address] [place] [address] Care Team Providers Care Reverse Unit Operator Name Role Phone Jac Rojas MD Primary Care Provider [phone] Encounter Details Date Type Department Care Team (Latest Contact Info) Description 05/24/2024 Lab Requisition [facility] - Main Lab 299 [facility] [place] [phone] Warren Isidro MD [address] [phone] Encounter for gynecological examination (general) (routine) without [...] Info) Description 03/21/2025 8:00 AM EST Appointment [facility] Endoscopy [address] [place] [phone] Hilario [place] MD [address] [phone] 09/07/2025 2:30 PM EDT Office Visit [facility] Hematology Oncology [address] [place] [phone] Samm Robins MD [address] [place] [address] documented as of this encounter Procedures Procedure Name Priority Date/Time Associated Diagnosis Comments PAP SMEAR Routine 05/24/2024 12:00 PM EST Encounter for gynecological examination (general) (routine) without abnormal findings documented in this encounter Results * Pap smear (05/24/2024 12:00 PM EST) Interpretation Negative for intraepithelial lesion or malignancy 05/25/2024 3:35 PM EST [facility] at 1535 EST General Categorization Negative 05/25/2024 3:35 PM [facility] Specimen Adequacy Satisfactory for evaluation, endocervical/lucas sformation zone component present 05/25/2024 3:35 PM EST [facility] Pap Methodology Liquid Based Pap Test 05/25/2024 3:35 PM EST [facility] Disclaimer The Pap test is a screening test which carries an inherent false negative rate. These test results should be correlated with the patient's clinical findings and history. This Pap test was processed using an automated screening system. Technical cytopathology services provided by [facility], at [address] [place] [address] (CLIA # [id number]/Jose Hernandez MD, Welding Machine Operator/Tender.) 05/25/2024 3:35 PM [facility] Console Pap Interpretation Reported 05/25/2024 3:35 PM [facility] Brushing/Spatula Cervix uteri structure / Unknown 05/24/2024 12:00 PM EST 05/24/2024 3:15 PM EST us Warren Isidro MD LAB CYTOLOGY ORDERABLES Final Result [facility] [address] [place] [address], documented in this encounter Visit Diagnoses Diagnosis Encounter for gynecological examination (general) (routine) without abnormal findings documented in this encounter Care Teams Reverse Unit Operator Relationship Specialty Start Date End Date Jac Rojas MD [address] [place] [address] PCP - General Internal Medicine 05/03/18 documented as of this encounter
== END 2025-03-07 11:01 | disposition home or self-care (01) ==
LOC: HO.HMGAL 11:01
PROVIDERS: PCP Specialist; Visit Provider Registered Nurse Emergency
DX: J30.89 Other allergic rhinitis (principal)
CPT/HCPCS: 95117; 95165

== ENCOUNTER 2025-03-26 11:04 | Outpatient (AMB) | payer MEDICARE, SELFPAY ==
--- OUTSIDE RECORDS SUMMARY | 2025-03-21 07:18 | XMS_ITS | Encounter Summary ---
[facility] Address [address] [place] [address] Care Team Providers Care Director Religious Education Name Role Phone Jac Rojas MD Primary Care Provider Reason for Referral * Hospital - Outpatient (Routine) - Closed Specialty Diagnoses / Procedures Referred By Awilda t Referred To Contact Gastroenterology Diagnoses Colon cancer screening Procedures COLONOSCOPY Anesthesia - MAC; [facility] ENDOSCOPY Hilario Anderson MD [address] [address] Phone: tel: fax: [facility] Endoscopy [address] [place] [address] Phone: tel: Referral ID Status Reason Start Date Expiration Date Visits Re quested Visits Authorized [id number] Closed 01/15/2025 01/15/2026 1 1 Reason for Visit * Auth/Cert (Routine) Specialty Diagnoses / Procedures Referred By Contac t Referred To Contact Diagnoses Encounter for screening for malignant neoplasm of colon Procedures COLONOSCOPY [facility] [place] [address] [facility] Endoscopy [address] [place] [address] Phone: tel: Referral ID Status Reason Start Date Expiration Date Visits Re quested Visits Authorized [id number] 1 1 Encounter Details Date Type Department Care Team (Latest Contact Info) Description 03/21/2025 7:18 AM EST - 03/21/2025 11:59 PM EST Hospital Encounter [facility] Endoscopy [address] [place] [phone] Hilario Anderson MD [address] [address] Nkechi Robins CRNA [address] [place] [address] Colon cancer screening Discharge Disposition: Home or Self Care Social History Tobacco Use Types Packs/Day Years Used Date Smoking Tobacco: Never Smokeless Tobacco: Never Interpersonal Safety Answer Date Record ed Physical Abuse Unrecognized value 03/21/2025 Verbal Abuse Unrecognized value 03/21/2025 Comments No Sex and Gender Information Value Date Recorded Sex Assigned at Not on file Legal Sex Female 8:37 PM EST Gender Identity Not on file Sexual Orientation Not on file documented as of this encounter Last Filed Vital Signs Vital Sign Reading Time Taken Comments Blood Pressure 108/55 03/21/2025 8:35 AM EST Pulse 62 03/21/2025 8:35 AM EST Temperature 36.2 C (97.1 F) 03/21/2025 8:15 AM EST Respiratory Rate 18 03/21/2025 8:35 AM EST Oxygen Saturation 97% 03/21/2025 8:35 AM EST Inhaled Oxygen Concentration - - Weight 52.2 kg (115 lb) 03/21/2025 7:41 AM EST Height 154.9 cm (5' 1 ) 03/21/2025 7:41 AM EST Body Mass Index 21.73 03/21/2025 7:41 AM EST documented in this encounter Discharge Instructions * Attachments The following attachments cannot be sent through Care Everywhere. * Diverticulosis (Macedonian) * Hemorrhoids (Macedonian) * Colon Polyps (Macedonian) documented in this encounter Medications at Time of Discharge bisacodyL (DULCOLAX) 5 mg EC tablet Take 2 tablets by mouth right before beginning bowel prep. See instructions provided by the office 2 tablet 5 bisacodyL (DULCOLAX) 5 mg EC tablet Take 2 tablets by mouth right before beginning bowel prep. See instructions provided by the office 2 tablet 5 cetirizine (ZyrTEC) 10 mg chewable tablet Chew 1 (one) time each day. cholecalciferol (VITAMIN D-3) 50 mcg (2,000 unit) tablet Take 1 tablet (2,000 Units total) by mouth 1 (one) time each day. escitalopram (LEXAPRO) 10 mg tablet Take 1 tablet (10 mg total) by mouth 1 (one) time each day. for 90 days 5 estradioL (VAGIFEM) 10 mcg tablet vaginal tablet Insert 1 tablet (10 mcg total) into the vagina. montelukast (SINGULAIR) 10 mg tablet Take 1 tablet (10 mg total) by mouth at bedtime. mv-min/folic/vit K/lycop/coQ10 (DAILY MULTIVITAMIN ORAL) Take by mouth 1 (one) time each day. [id number] osx-[id number]-NBu-asb- C 140-9-5.2 gram powder in packet, sequential [...] the gallon at 8PM. 4000 mL 5 polyethylene glycol (Golytely) 236-22.74-6.74 -5.86 gram [...] by mouth 1 (one) time each day. triamcinolone acetonide (NASACORT ALLERGY NASL) Administer into affected nostril(s). documented as of this encounter Discharge Disposition Disposition Code Departure Means Destination Home or Self Care documented in this encounter Progress Notes * Juliann Bustamante RN - 03/21/2025 8:25 AM EST Problem: Cognitive:Periop Procedure - Minor Goal: Knowledge of disease or condition will improve Outcome: Adequate for Discharge Problem: Sensory:Periop Procedure - Minor Goal: Demonstrates/reports adequate pain control Outcome: Adequate for Discharge Dr in to discuss procedure results, all questions answered. Tolerated po fluids, ready for discharge. * Hellen Joy RN - 03/21/2025 7:33 AM EST Problem: Cognitive:Periop Procedure - Minor Goal: Knowledge of disease or condition will improve Outcome: Progressing Problem: Sensory:Periop Procedure - Minor Goal: Demonstrates/reports adequate pain control Outcome: Progressing Verbalizes understanding of discharge teaching. documented in this encounter H&P Notes * Hilario Anderson MD - 03/21/2025 8:00 AM EST Pre-Op Diagnosis: Screening for colon cancer Proposed Procedure: Colonoscopy Performing Surgeon/MD/Endoscopist: Hilario Anderson MD Medical/History: Medical History[1]Surgical History[2] Medications/Allergies: Prior to Admission medications Medication Sig Start Date End Date Taking? Authorizing Provider cetirizine (ZyrTEC) 10 mg chewable tablet Chew 1 (one) time each day. Yes Historical Provider, cholecalciferol (VITAMIN D-3) 50 mcg (2,000 unit) tablet Take 1 tablet (2,000 Units total) by mouth1 (one) time each day. Yes Historical Provider, escitalopram (LEXAPRO) 10 mg tablet Take 1 tablet (10 mg total) by mouth 1 (one) time each day. for90 days 12/22/24 Yes Historical Provider, estradioL (VAGIFEM) 10 mcg tablet vaginal tablet Insert 1 tablet (10 mcg total) into the vagina. Yes Historical Provider, montelukast (SINGULAIR) 10 mg tablet Take 1 tablet (10 mg total) by mouth at bedtime. Yes Historical Provider, mv-min/folic/vit K/lycop/coQ10 (DAILY MULTIVITAMIN ORAL) Take by mouth 1 (one) time each day. Yes Historical Provider, rosuvastatin (CRESTOR) 5 mg tablet Take 1 tablet (5 mg total) by mouth 1 (one) time each day. Yes Historical Provider, triamcinolone acetonide (NASACORT ALLERGY NASL) Administer into affected nostril(s). Yes HistoricalProviderMD bisacodyL (DULCOLAX) 5 mg EC tablet Take 2 tablets by mouth right before beginning bowel prep. See instructions provided by the office 01/02/25 Hilario Anderson MD bisacodyL (DULCOLAX) 5 mg EC tablet Take 2 tablets by mouth right before beginning bowel prep. See instructions provided by the office 03/07/25 Hilario Anderson MD [id number] aek-[id number]-BIn-asb-C 140-9-5.2 gram powder in packet, sequential Take 1 each by mouth Seeadministration instructions. 01/02/25 Hilario Anderson MD polyethylene glycol (Golytely) 236-22.74-6.74 -5.86 gram solution Take 4L by mouth once for one dose. May substitue any PEG. Starting at 2PM the day before your procedure drink 1 8oz glasses at your own pace until you complete half of the gallon. Finish 2nd half of the gallon at 8PM. 01/02/25 Hilario Anderson MD polyethylene glycol (Golytely) 236-22.74-6.74 -5.86 gram solution Take 4L by mouth once for one dose. May substitue any PEG. Starting at 2PM the day before your procedure drink 1 8oz glasses at your own pace until you complete half of the gallon. Finish 2nd half of the gallon at 8PM. 03/07/25 Hilario Anderson MD Patient Age:69 y.o. Vitals: Vitals: 03/21/25 0741 BP: 115/65 Pulse: 67 Resp: 15 Temp: 36.3 ??C (97.4 ??F) SpO2: 98% Physical Exam: Mental Status: Clear HEENT: WNL Heart: WNL Lungs: WNL Abdomen: WNL Extremities: WNL Neuro: WNL Diagnosis/Plan: Screening for colon cancer Plan for colonoscopy Board Certified Gastroenterology [facility] W [phone] [address] [facility] [place] [address] [email or web address] Hilario Anderson MD 7:46 AM EST [1] Past Medical History: Diagnosis Date Anxiety Asthma Breast cancer (CMS/HCC V24, CMS/HCC V28) RIGHT Hyperlipidemia [2] Past Surgical History: Procedure Laterality Date BREAST LUMPECTOMY Right COLONOSCOPY STEREOTACTIC CORE BIOPSY Right TUBAL LIGATION documented in this encounter Plan of Treatment Upcoming Encounters Date Type Department Care Team (Late st Contact Info) Description 09/07/2025 2:30 PM EDT Office Visit [facility] Hematology Oncology [address] [place] [address] Samm Robins MD [address] [place] [address] documented as of this encounter Procedures Procedure Name Priority Date/Time Associated Diagnosis Comments COLONOSCOPY Routine 03/21/2025 8:14 AM EST Colon cancer screening TISSUE EXAM Routine 03/21/2025 8:09 AM EST Colon cancer screening documented in this encounter Results * COLONOSCOPY Anesthesia - MAC; [facility] ENDOSCOPY (03/21/2025 8:14 AM EST) Anatomical Region Laterality Modality Endoscopy 03/21/2025 7:50 AM EST Impressions 03/21/2025 8:15 AM EST - One 3 mm polyp in the proximal ascending colon, removed with a cold snare. Resected and retrieved. - Diverticulosis in the entire examined colon. - Non-bleeding internal hemorrhoids. - The examination was otherwise normal on direct and retroflexion views. Recommendation: - Discharge patient to home. - High fiber diet. - Continue present medications. - Await pathology results. - Repeat colonoscopy for surveillance based on pathology results. - Return to GI office PRN. Narrative 03/21/2025 8:15 AM EST [facility] GI Patient Name: Mariola Robins Procedure Date: 03/21/2025 7:50 AM Date of : 1955 Age: 69 Room: ROOM 15 Gender: Female Note Status: Finalized Attending MD: Hilario Anderson MD, Procedure Date No Time: 03/21/2025 Procedure: Colonoscopy Indications: Screening for colorectal malignant neoplasm Providers: Hilario Anderson MD Referring MD: Hilario Anderson MD Medicines: Monitored Anesthesia Care Complications: No immediate complications. Estimated Blood Loss: Estimated blood loss: none. Procedure: Pre-Anesthesia Assessment: - ASA Grade Assessment: II - A patient with mild systemic disease. - After reviewing the risks and benefits, the patient was deemed in satisfactory condition to undergo the procedure. After I obtained informed consent, the scope was passed under direct vision. Throughout the procedure, the patient's blood pressure, pulse, and oxygen saturations were monitored continuously.The Olympus Pediatric Colonoscope was introduced through the anus and advanced to the cecum, identified by appendiceal orifice and ileocecal valve. The colonoscopy was performed without difficulty. The patient tolerated the procedure well. The quality of the bowel preparation was good. Findings: A 3 mm polyp was found in the proximal ascending colon. The polyp was sessile. The polyp was removed with a cold snare. Resection and retrieval were complete. Estimated blood loss was minimal. Scattered small and large-mouthed diverticula were found in the entire colon. Non-bleeding internal hemorrhoids were found during retroflexion. The hemorrhoids were small. The exam was otherwise without abnormality on direct and retroflexion views. Procedure Code(s): --- Professional --- 55278, Colonoscopy, flexible; with removal of tumor(s), polyp(s), or other lesion(s) by snare technique Diagnosis Code(s): --- Professional --- Z12.11, Encounter for screening for malignant neoplasm of colon D12.2, Benign neoplasm of ascending colon CPT copyright 2020 [employer]. All rights reserved. The codes documented in this report are preliminary and upon child welfare counselor review may be revised to meet current compliance requirements. Hilario Anderson MD 03/21/2025 8:15:28 AM This report has been signed electronically.Hilario Anderson MD Number of Addenda: 0 Note Initiated On: 03/21/2025 7:50 AM Scope In: Scope Out: Endoscopy Department at [facility] - [address] [place] [phone] Procedure Note Hilario Anderson MD - 03/21/2025 [facility] GI Patient Name: Mariola Robins Procedure Date: 03/21/2025 7:50 AM Date of : 1955 Age: 69 Room: ROOM 15 Gender: Female Note Status: Finalized Attending MD: Hilario Andreson MD, Procedure Date No Time: 03/21/2025 Procedure: Colonoscopy Indications: Screening for colorectal malignant neoplasm Providers: Hilario Anderson MD Referring MD: Hilario Anderson MD Medicines: Monitored Anesthesia Care Complications: No immediate complications. Estimated Blood Loss: Estimated blood loss: none. Procedure: Pre-Anesthesia Assessment: - ASA Grade Assessment: II - A patient with mild systemic disease. - After reviewing the risks and benefits, thepatient was deemed in satisfactory condition to undergo the procedure. After I obtained informed consent, the scope was passed under direct vision. Throughout theprocedure, the patient's blood pressure, pulse, and oxygen saturations were monitored continuously.The Olympus Pediatric Colonoscope was introduced through theanus and advanced to the cecum, identified byappendiceal orifice and ileocecal valve. The colonoscopy was performed without difficulty. The patient tolerated the procedure well. The quality of the bowel preparation was good. Findings: A 3 mm polyp was found in the proximal ascending colon. The polyp was sessile. The polyp was removed with a cold snare. Resection and retrieval were complete. Estimated blood loss was minimal. Scattered small and large-mouthed diverticula were found in the entire colon. Non-bleeding internal hemorrhoids were found during retroflexion. The hemorrhoids were small. The exam was otherwise without abnormality ondirect and retroflexion views. Procedure Code(s): --- Professional --- 12601, Colonoscopy, flexible; with removal of tumor(s), polyp(s), or other lesion(s) by snare technique Diagnosis Code(s): --- Professional --- Z12.11, Encounter for screening for malignantneoplasm of colon D12.2, Benign neoplasm of ascending colon CPT copyright 2020 [employer]. All rights reserved. The codes documented in this report are preliminary and upon child welfare counselor reviewmay be revised to meet current compliance requirements. Hilario Anedrson MD 03/21/2025 8:15:28 AM This report has been signed electronically.Hilario Anderson MD Number of Addenda: 0 Note Initiated On: 03/21/2025 7:50 AM Scope In: Scope Out: Endoscopy Department at [facility] - [address] [place] [phone] IMPRESSION: - One 3 mm polyp in the proximal ascending colon, removed with a cold snare. Resected andretrieved. - Diverticulosis in the entire examined colon. - Non-bleeding internal hemorrhoids. - The examination was otherwise normal on directand retroflexion views. Recommendation: - Discharge patient to home. - High fiber diet. - Continue present medications. - Await pathology results. - Repeat colonoscopy for surveillance based on pathology results. - Return to GI office PRN. us Hilario Anderson MD GI~PROCEDURE ORDERABLES Final Result * Tissue exam (03/21/2025 8:09 AM EST) Final Diagnosis A. Large Intestine, Right/Ascend ing Colon, polyp: - Tubular adenoma. 03/22/2025 9:49 AM EST [facility] at 0948 EST Gross Description A. Large Intestine, Right/Ascend ing Colon, polyp: Labeled ascend colon polyp . Received in formalin is a 0.1 cm in greatest dimension irregular maldonado mucosal tissue fragment which is wrapped in paper and submitted in toto in one cassette, one piece, multiple levels. JOSEPHINE 03/22/2025 9:49 AM [facility] Disclaimer Unless otherwise specified, all tissue is 10% NB formalin fixed and paraffin embedded. 03/22/2025 9:49 AM [facility] Tissue Ascending colon structure / Unknown 03/21/2025 8:09 AM EST 03/21/2025 8:58 AM EST us Hilario Anderson MD LAB PATHOLOGY ORDERABLES Sandra lopez Result [facility] [address] [place] [address], documented in this encounter Visit Diagnoses Diagnosis Colon cancer screening Special screening for malignant neoplasms, colon documented in this encounter Discontinued Medications Medication Sig Discontinue Reason Start Date End Da te escitalopram (LEXAPRO) 20 mg tablet Take 0.5 tablets (10 mg total) by mouth 1 (one) time each day. Dose adjustment 03/14/2025 documented as of this encounter Historical Medications * This list may reflect changes made after this encounter. cetirizine (ZyrTEC) 10 mg chewable tablet Chew 1 (one) time each day. triamcinolone acetonide (NASACORT ALLERGY NASL) Administer into affected nostril(s). escitalopram (LEXAPRO) 10 mg tablet Take 1 tablet (10 mg total) by mouth 1 (one) time each day. for 90 days 12/22/2024 added in this encounter Orders Discharge Count Last Ordered Date First Orde red Date DISCHARGE PATIENT 1 03/21/2025 documented in this encounter Care Teams Director Religious Education Relationship Specialty Start Date End Date Jac Rojas MD [address] [place] [phone] PCP - General Internal Medicine 05/03/18 documented as of this encounter
--- OUTSIDE RECORDS SUMMARY | 2025-03-21 07:57 | XMS_ITS | Encounter Summary ---
Author Organization [facility] Address [address] [place] [phone] Care Team Providers Care Carton Stenciler Name Role Phone Jac Rojas MD Primary Care Provider [phone] Reason for Visit * Auth/Cert (Routine) Specialty Diagnoses / Procedures Referred By Contjan t Referred To Contact Diagnoses Encounter for screening for malignant neoplasm of colon Procedures COLONOSCOPY [facility] [address] [place] [phone] [facility] Endoscopy [address] [place] [address] Phone: tel: Referral ID Status Reason Start Date Expiration Date Visits Re quested Visits Authorized [id number] 1 1 Encounter Details Date Type Department Care Team (Late st Contact Info) Description 03/21/2025 7:57 AM EST Anesthesia Event [facility] Endoscopy [address] [place] [address] Lev Calvo MD [address] [place] [address] Anesthesia Record Procedure Summary Procedure Name Responsible Anesthesiologist Anesthesia Start Time Anesthesia Stop Time COLONOSCOPY Lev Calvo MD 03/21/25 0757 03/21/25 0814 Events Date Time Event Comment 03/21/2025 0748 0757 An Start 0758 An Start Data The patient wa s reevaluated immediately before moderate or deep sedation use and before anesthesia induction. 0759 In Room 0801 Anesthesia Ready 0813 an stop data 0813 Handoff to RN I completed my handoff to the receiving nurse during which we: 1. Identified the patient 2. Identified the responsible provider 3. Reviewed the pertinent medical history 4. Discussed the surgical course 5. Reviewed intra-op anesthesia management and issues during anesthesia 6. Set expectations for post-procedure period 7. Allowed opportunity for questions and acknowledgement of understanding. 0814 An Stop 0814 Out of Room Meds Name Total propofol (DIPRIVAN) injection 10 mg/mL 2 50 mg lidocaine PF (XYLOCAINE-MPF) local injec tion 2% 50 mg lactated Ringer's infusion 400 mL * Agents No agents on file. * Blood No blood administrations on file. Lines, Drains, and Airways Type Details Placement Removal Peripheral IV Placement Date: 03/21/25; Placement Time: 742; Catheter Size: 20 G; Orientation: Right, Posterior; Location: Hand; Site Prep: Alcohol, Chlorhexidine; Inserted by: Rach NEWMAN; Insertion Attempts: 1; Patient Tolerance: Tolerated well; Removal Date: 03/21/25; Removal Time: 82403/21/25 0743 by Hellen Joy RN 03/21/25 08 by Juliann Bustamante RN documented in this encounter Social History Tobacco Use Types Packs/Day Years [...] on file documented as of this encounter Progress Notes * Nkechi Robins CRNA - 03/21/2025 8:14 AM EST Patient: Mariola Robins Procedure Summary Date: 03/21/25 Room / Location: [facility] Endoscopy Anesthesia Start: 756 Anesthesia Stop: 813 Procedure: COLONOSCOPY Diagnosis: Colon cancer screening Scheduled Providers: Hilario Anderson MD; Nkechi Robins CRNA; Lev Calvo MD Responsible Provider: Lev Calvo MD Anesthesia Type: MAC ASA Status: 2 Anesthesia Plan: MAC Last Vitals: Vitals Value Taken Time BP 03/21/25 08:14 Temp 03/21/25 08:14 Pulse 03/21/25 08:14 Resp 03/21/25 08:14 SpO2 03/21/25 08:14 No data recorded Anesthesia Post Evaluation Patient location during evaluation: PACU Patient participation: waiting for patient participation Level of consciousness: responsive to light touch Pain score: 0 Pain management: adequate Airway patency: patent Anesthetic complications: no Cardiovascular status: acceptable Respiratory status: acceptable Hydration status: acceptable Nausea: No Vomiting: No There were no known notable events for this encounter. * Lev Calvo MD - 03/21/2025 7:30 AM EST Relevant Problems Other (+) Malignant neoplasm of overlapping sites of right breast in female, estrogen receptor positive ([facility] V24, [facility] V28) Clinical information reviewed: Allergies Meds Anesthesia Plan ASA 2 Anesthesia Plan: MAC Induction method: N/A Anesthetic plan and risks discussed with patient. Anesthesia Evaluation Airway Mallampati: II Dental - normal exam Pulmonary - normal exam (+) asthma ROS comment: Uses inhaler before she runs 5k races Cardiovascular - normal exam ROS comment: Hyperlipdemia Neuro/Psych (+) psychiatric history Comments: Hx of anxiety with anxiolytic dependence Psychological insomnia GI/Hepatic/Renal - negative ROS Endo/Other Comments: Hx of breast CA Abdominal PONV RISK SCORE: 2 Vitals: 03/14/25 1100 Weight: 52.6 kg (116 lb) Height: 1.549 m (61 ) SpO2 Readings from Last 1 Encounters: 09/07/24 98% No results found for: WBC , RBC , HGB , HCT , PLT , MCV Allergies[1] STOP BANG: No data recorded NPO Status: No data recorded [1] Allergies Allergen Reactions Meperidine GI intolerance documented in this encounter Plan of Treatment Upcoming Encounters Date Type Department Care Team (Late st Contact Info) Description 09/07/2025 2:30 PM EDT Office Visit [facility] Hematology Oncology [address] [place] [phone] Samm Robins MD [address] [place] [address] documented as of this encounter Visit Diagnoses Not on filedocumented in this encounter Administered Medications Inactive Administered Medications - up to 3 most recent administrations Medication Order MAR Action Action Date Dose Rate Site lactated Ringer's infusion intravenous, Continuous PRN, Starting on Wed03/21/25 at 0750, Anesthesia Intraprocedure New Bag 03/21/2025 7:50 AM EST 50 mL/hr lidocaine (PF) (XYLOCAINE-MPF) 2 % injection injection, As needed, Starting on Wed03/21/25 at 0800, Anesthesia Intraprocedure Given 03/21/2025 8:00 AM EST 50 mg propofoL (DIPRIVAN) injection intravenous, As needed, Starting on Wed03/21/25 at 0800, Anesthesia Intraprocedure Given 03/21/2025 8:10 AM EST 50 mg Given 03/21/2025 8:05 AM EST 50 mg Given 03/21/2025 8:02 AM EST 50 mg documented in this encounter Care Teams Carton Stenciler Relationship Specialty Start Date End Date Jac Rojas MD [address] [place] [address] PCP - General Internal Medicine 05/03/18 documented as of this encounter
--- OUTSIDE RECORDS SUMMARY | 2025-03-26 14:00 | XMS_ITS | Clinical Summary ---
Author Organization [facility] Address [address] [place] [address] Phone Care Team Providers Care Tub Mender Name Role Phone Jac Rojas MD Primary Care Provider [phone] Allergies Active Allergy Reactions Criticality Noted Date Comments Meperidine GI intolerance 05/03/2018 Medications cholecalciferol (VITAMIN D-3) 50 mcg [...] the office 2 tablet 01/03/20 25 Active [id number] alc-DrIl-GAi-asb -C 140-9-5.2 gram powder in packet, sequential Take 1 each by mouth See administration instructions. 3 packet 01/03/20 25 Active bisacodyL (DULCOLAX) 5 mg EC tablet Take 2 tablets by mouth right before beginning bowel prep. See instructions provided by the office 2 tablet 03/07/20 25 Active polyethylene glycol (Golytely) 236-22.74-6.74 -5.86 gram solution Take 4L by mouth once for one dose. May substitue any PEG. Starting at 2PM the day before your procedure drink 1 8oz glasses at your own pace until you complete half of the gallon. Finish 2nd half of the gallon at 8PM. 4000 mL 03/07/20 25 Active escitalopram (LEXAPRO) 10 mg tablet Take 1 tablet (10 mg total) by mouth 1 (one) time each day. for 90 days 12/23/19 25 Active triamcinolone acetonide (NASACORT ALLERGY NASL) Administer into affected nostril(s). Active cetirizine (ZyrTEC) 10 mg chewable tablet Chew 1 (one) time each day. Active escitalopram (LEXAPRO) 20 mg tablet Take 0.5 tablets (10 mg total) by mouth 1 (one) time each day. 025 Discontin ued(Dose adjustmen t) Active Problems Problem Noted Date Diagnosed Date Malignant neoplasm of overla pping sites of right breast in female, estrogen receptor positive 12/24/2023 Encounters Date Type Department Care Team Description 03/22/2025 Results Follow-Up Gastroenterology - 299 [facility] [address] [facility] [address] [place] [phone] Josefa Trotter [place] 03/21/2025 7:57 AM EST Anesthesia Event [facility] [address] [place] [address] Lev Calvo MD 03/21/2025 7:18 AM EST - 03/21/2025 11:59 PM EST Hospital Encounter [facility] [address] [place] [address] Slitzky, Hilario E, MD Shimon, Nkechi, SEWING MACHINE OPERATOR PAPER BAGS Colon cancer screening Discharge Disposition: Home or Self Care 03/05/2025 10:22 AM EST - 03/05/2025 11:59 PM EST Hospital [facility]counter [facility] [address] [address] Encounter for screening mammogram for breast cancer Discharge Disposition: Home or Self Care 01/15/2025 11:59 PM EDT Anesthesia Event [facility] [address] [place] [address] Celestino Mccormack CRNA from Last 3 Months Surgical History Surgery Date Site/Laterality Comments STEREOTACTIC CORE BIOPSY Right COLONOSCOPY BREAST LUMPECTOMY Right TUBAL LIGATION Medical History Medical History Date Comments Breast cancer (CMS/HCC V24, CMS/HCC V28) RIGHT Hyperlipidemia Asthma Anxiety Family History Medical History Relation Name Comments [...] Mass Index 21.73 03/21/2025 7:41 AM EST Plan of Treatment Upcoming Encounters Date Type Department Care Team (Late st Contact Info) Description 09/07/2025 2:30 PM EDT Office Visit [facility] Hematology Oncology [address] [place] [address] Samm Ma MD [address] [place] [address] Health Maintenance Due Date Last Done Comments Hepatitis C Screening 03/14/2022 Medicare Annual Wellness Visit 03/14/2022 Osteoporosis Screening (Bone Density Screening) 03/14/2022 Social Influencers of Health Screening 03/14/2022 Depression Screening 04/05/2024 COVID-19 Vaccine (9 - Moderna risk season) 2025 12/25/2024, 12/18/2023, 01/06/2023, Additional history exists Falls Risk Assessment 03/21/2026 03/21/2025 Breast Cancer Screening 03/05/2027 03/05/20 25, 03/03/2024, 01/26/2022, Additional history exists Colorectal Cancer Screening: Colonoscopy 03/21/2030 03/21/2025 DTaP,Tdap,and Td Vaccines (2 - Td or [...] 03/21/2025 8:09 AM EST Colon cancer screening MG MAMMO DIGITAL SCREENING W DAMIEN BILAT Routine 03/05/2025 11:06 AM EST Encounter for screening mammogram for breast cancer from Last 3 Months Results * COLONOSCOPY Anesthesia - MAC; [facility]COPY (03/21/2025 8:14 AM EST) [...] office PRN. Narrative 03/21/2025 8:15 AM EST [facility] GI Patient Name: Mariola Ma Procedure Date: 03/21/2025 7:50 AM Date of [...] retroflexion views. Procedure Code(s): --- Professional --- 16128, Colonoscopy, flexible; with removal of tumor(s), polyp(s), or other lesion(s) by snare technique Diagnosis Code(s): --- Professional --- Z12.11, Encounter for screening for malignant neoplasm of colon D12.2, Benign neoplasm of ascending colon CPT copyright 2020 [employer]. All rights reserved. The codes documented in this report are preliminary and upon wood grinder operator review may be revised to meet current compliance requirements. Hilario Anderson MD 03/21/2025 8:15:28 AM This report has been signed electronically.Hilario Anderson MD Number of Addenda: 0 Note Initiated On: 03/21/2025 7:50 AM Scope In: Scope Out: Endoscopy Department at [facility] - [address] [place] [phone] Procedure Note Hilario Anderson MD - 03/21/2025 [facility] GI Patient Name: Mariola Ma Procedure Date: 03/21/2025 7:50 AM Date of [...] retroflexion views. Procedure Code(s): --- Professional --- 63590, Colonoscopy, flexible; with removal of tumor(s), polyp(s), or other lesion(s) by snare technique Diagnosis Code(s): --- Professional --- Z12.11, Encounter for screening for malignantneoplasm of colon D12.2, Benign neoplasm of ascending colon CPT copyright 2020 [employer]. All rights reserved. The codes documented in this report are preliminary and upon wood grinder operator reviewmay be revised to meet current compliance requirements. Hilario Anderson MD 03/21/2025 8:15:28 AM This report has been signed electronically.Hilario Anderson MD Number of Addenda: 0 Note Initiated On: 03/21/2025 7:50 AM Scope In: Scope Out: Endoscopy Department at [facility] - [address] [place] [phone] IMPRESSION: - One 3 mm polyp in [...] results. - Return to GI office PRN. Hilario Anderson MD GI~PROCEDURE ORDERABLES Final Result * Tissue exam (03/21/2025 8:09 AM EST) Final Diagnosis A. Large Intestine, Right/Ascend ing Colon, polyp: - Tubular adenoma. 03/22/2025 9:49 AM EST [facility] at 0948 EST Gross Description A. Large Intestine, Right/Ascend ing Colon, polyp: Labeled ascend colon polyp . Received in formalin is a 0.1 cm in greatest dimension irregular maldonado mucosal tissue fragment which is wrapped in paper and submitted in toto in one cassette, one piece, multiple levels. JOSEPHINE 03/22/2025 9:49 AM EST [facility] Disclaimer Unless otherwise specified, all tissue is 10% NB formalin fixed and paraffin embedded. 03/22/2025 9:49 AM EST [facility] Tissue Ascending colon structure / Unknown 03/21/2025 8:09 AM EST 03/21/2025 8:58 AM EST Hilario Anderson MD LAB PATHOLOGY ORDERABLES Sandra l Result [facility]) [facility] [address] [place] [address], * MG Mammo Digital Screening w Damien bilat (03/05/2025 11:06 AM EST) Anatomical Region Laterality Modality Breast Bilateral Mammography 03/05/2025 11:2 1 AM EST Impressions 03/05/2025 1:26 PM EST Benign. BI-RADS CATEGORY: 2 - BENIGN RECOMMENDATION: Screening bilateral mammogram is recommended in 1 year. Mammo Location: [facility], [address] [place] [address], [address], . -------- FINAL REPORT -------- Dictated By: Blane Spencer Dictated Date: 03/05/2025 11:21 ET Assigned Physician: Blane Spencer Reviewed and Electronically Signed By: Blane Spencer Signed Date: 03/05/2025 13:26 ET Workstation ID: [id number] Transcribed By: Self Edit Transcribed Date: 03/05/2025 [...] year. Mammo Location: [facility], [address] [place] [address], [address], . -------- FINAL REPORT -------- Dictated By: Blane Spencer Dictated Date: 03/05/2025 11:21 ET Assigned Physician: Blane Spencer Reviewed and Electronically Signed By: Blane Spencer Signed Date: 03/05/2025 13:26 ET Workstation ID: [id number] Transcribed By: Self Edit Transcribed Date: 03/05/2025 11:29 ET us Self Referral [facility] IMG BI PROCEDURES Final Resul t from Last 3 Months Insurance [employer] [place]IC[place]ANTAGE Care Teams Tub Mender Relationship Specialty Start Date End Date Jca Rojas MD [address] [place] [phone] PCP - General Internal Medicine 05/03/18
--- OUTSIDE RECORDS SUMMARY | 2025-03-26 14:00 | XMS_ITS | Encounter Summary ---
Author Organization [facility] Address [address] [place] [address] Care Team Providers Care Fish Seiner Name Role Phone Jac Rojas MD Primary Care Provider [phone] Encounter Details Date Type Department Care Team (Late Contact Info) Description 03/22/2025 Results Follow-Up Gastroenterology - [address] [phone] Josefa Trotter MA Social History Tobacco Use Types Packs/Day Years [...] Encounters Date Type Department Care Team (Late Contact Info) Description 09/07/2025 2:30 PM EDT Office Visit [facility] Hematology Oncology [address] [place] [phone] Samm Robins MD [address] [place] [address] documented as of this encounter Visit Diagnoses Not on filedocumented in this encounter Care Teams Fish Seiner Relationship Specialty Start Date End Date Jac Rojas MD [address] [place] [phone] PCP - General Internal Medicine 05/03/18 documented as of this encounter
--- OUTSIDE RECORDS SUMMARY | 2025-03-26 14:00 | XMS_ITS | Encounter Summary ---
Author Organization [facility] Address [address] [place] [address] Care Team Providers Care Ring Sorter Name Role Phone Jac Rojas MD Primary Care Provider [phone] Encounter Details Date Type Department Care Team (Latest Contact Info) Description 05/24/2024 Lab Requisition [facility] - Main Lab [address] [facility] [place] [phone] Warren Isidro MD [address] [phone] Encounter for gynecological examination (general) (routine) without [...] Description 09/07/2025 2:30 PM EDT Office Visit [facility] Hematology Oncology [address] [place] [address] Samm Robins MD [address] [place] [address] documented as of this encounter Procedures Procedure Name Priority Date/Time Associated Diagnosis Comments PAP SMEAR Routine 05/24/2024 12:00 PM EST Encounter for gynecological examination (general) (routine) without abnormal findings documented in this encounter Results * Pap smear (05/24/2024 12:00 PM EST) Interpretation Negative for intraepithelial lesion or malignancy 05/25/2024 3:35 PM EST [facility] at 1535 EST General Categorization Negative 05/25/2024 3:35 PM [facility] Specimen Adequacy Satisfactory for evaluation, endocervical/lucas sformation zone component present 05/25/2024 3:35 PM [facility] Pap Methodology Liquid Based Pap Test 05/25/2024 3:35 PM [facility] Disclaimer The Pap test is a screening test which carries an inherent false negative rate. These test results should be correlated with the patient's clinical findings and history. This Pap test was processed using an automated screening system. Technical cytopathology services provided by [facility], at [address] [place] [address] (CLIA # [id number]/Jose Hernandez MD, Airplane Fueler.) 05/25/2024 3:35 PM [facility] Console Pap Interpretation Reported 05/25/2024 3:35 PM [facility] Brushing/Spatula Cervix uteri structure / Unknown 05/24/2024 12:00 PM EST 05/24/2024 3:15 PM EST us Warren Isidro MD LAB CYTOLOGY ORDERABLES Final Result [facility]) [facility] [address] [place] [address], documented in this encounter Visit Diagnoses Diagnosis Encounter for gynecological examination (general) (routine) without abnormal findings documented in this encounter Care Teams Ring Sorter Relationship Specialty Start Date End Date Jac Rojas MD [address] [place] [phone] PCP - General Internal Medicine 05/03/18 documented as of this encounter
--- OUTSIDE RECORDS SUMMARY | 2025-03-26 14:00 | XMS_ITS | Clinical Summary ---
Author Organization [facility] Prior to 09/02/24 Address [address] [place] [address] Care Team Providers Care Cognos Bi Administrator Name Role Phone Jac Rojas MD Primary Care Provider [phone] Allergies Active Allergy Reactions Criticality Noted Date [...] age to complete this topic Care Teams Cognos Bi Administrator Relationship Specialty Start Date End Date Jac Rojas MD [address] [place] [address] PCP - General Internal Medicine 05/03/18
== END 2025-03-26 11:04 | disposition home or self-care (01) ==
LOC: HO.HMGAL 11:04
PROVIDERS: PCP Specialist; Visit Provider Registered Nurse Emergency
DX: J30.89 Other allergic rhinitis (principal)
CPT/HCPCS: 95117; 95165